=== PATIENT | female | born 1950 | race Caucasian/White ===

== ENCOUNTER 2017-04-10 17:04 | Emergency (ER) | payer MEDICARE, OTHER ==
[~2017-04-10] VITALS: Ht 154.9 cm; Wt 59.0 kg
[~2017-04-10 17:04] MED LIST: ASPI81TA31 PO; METOPROLOL; [UNRECOGNIZED DRUG - OTHER]
--- NOTE | 2017-04-10 18:40 | NUR ---
Dr wyatt at the bedside for MSE.
--- NOTE | 2017-04-10 18:52 | NUR ---
Patient discharged to home in stable conditon. Written and verbal after care instructions given. Patient verbalizes understanding of instructions.
[2017-04-10 18:55] VITALS: BP 162/78
== END 2017-04-10 18:56 | disposition home or self-care (01) ==
LOC: ER 17:05
DX: I73.9 Peripheral vascular disease, unspecified (principal); I10 Essential (primary) hypertension; F17.200 Nicotine dependence, unspecified, uncomplicated; Z79.82 Long term (current) use of aspirin; Z88.2 Allergy status to sulfonamides
CPT/HCPCS: A4663